=== PATIENT | male | born 1960 | race Caucasian/White ===

== ENCOUNTER 2017-03-16 20:32 | Emergency (ER) | payer MEDICAID ==
[2017-03-16] MEDS ORDERED: ACETAMINOPHEN 325 MG TAB PO ONE (21:21)
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
[2017-03-16 21:34] LABS: BASO % 0.3 % (0-6); EOS % 2.4 % (0-6); GRAN % 61.8 % (47-80); HEMATOCRIT 43.8 % (42.0-52.0); HEMOGLOBIN 15.3 gm/dl (14.0-18.0); MEAN CELL VOLUME 90.3 fl (81-97); MEAN CORPUSCULAR HEMOGLOBIN 31.5 pg (27-33); MEAN CORPUSCULAR HGB CONC 34.9 g/dl (32-36); MEAN PLATELET VOLUME 8.8 fl (7.4-10.4); MONO % 14.5 % (0-9); PLATELET COUNT 317 K/uL (130-400); RED BLOOD COUNT 4.85 M/uL (4.40-5.70); RED CELL DISTRIBUTION WIDTH 13.4 % (11.5-14.5); WHITE BLOOD COUNT W/O DIFF 12.5 K/uL (4.2-12.2)
[2017-03-16 21:55] LABS: ALB/GLOB RATIO 1.7 (1.1-1.8); ALBUMIN 4.7 g/dL (4.0-5.0); ALKALINE PHOSPHATASE 111 U/L (40-129); ALT/SGPT 18 U/L (<41); AST/SGOT 21 U/L (10.0-50.0); BLOOD UREA NITROGEN 20.7 mg/dL (12.6-42.6); CKMB 2.8 ng/mL (<6.73); CREATINE PHOSPHOKINASE 171 U/L (39-308); CREATININE 0.8 mg/dL (0.7-1.2); EST GLOMERULAR FILTRATION RATE > 60 mL/min; GLUCOSE,RANDOM 104 mg/dL (74-109); TOTAL PROTEIN 7.4 g/dL (6.6-8.7)
[2017-03-16 22:00] LABS: TROPONIN I < 0.30 ng/mL (0.00-0.300)
[2017-03-16 22:01] LABS: URINE APPEARANCE CLEAR; URINE BILIRUBIN NEGATIVE (NEGATIVE); URINE BLOOD MODERATE (NEGATIVE); URINE COLOR YELLOW; URINE GLUCOSE (UA) NEGATIVE (NEGATIVE); URINE KETONE NEGATIVE (NEGATIVE); URINE LEUKOCYTE ESTERASE NEGATIVE (NEGATIVE); URINE NITRITE NEGATIVE (NEGATIVE); URINE PROTEIN NEGATIVE (NEGATIVE); URINE UROBILINOGEN 0.2 E.U./dL (0.20 - 1.00)
[2017-03-16 22:05] LABS: URINE BACTERIA NONE SEEN; URINE EPITHELIAL CELLS 0 - 2 (FEW); URINE WBC 0 - 2 (0-2/hpf)
[2017-03-16] MEDS ORDERED: POTASSIUM CHLORIDE 20 MEQ TABLET PO ONE (22:07)
[2017-03-16] MEDS ORDERED: ERTAPENEM SODIUM 1 G in 0.9 % SODIUM CHLORIDE 100ML 100 ML IVPB ONE (22:31)
[2017-03-16] MEDS ORDERED: KETOROLAC 30 MG/ML VIAL IVP ONE (22:50)
--- NOTE | 2017-03-17 21:15 | RADIOLOGY REPORT ---
EXAM: CHEST 2 VIEWS HISTORY: COUGH. TECHNIQUE: Frontal and lateral views of the chest. COMPARISON: None. FINDINGS: The heart size is normal. The lungs are clear. There is no pneumothorax. IMPRESSION: NEGATIVE CHEST. JOB NUMBER: [id number] MTDD
--- NOTE | 2017-03-17 21:26 | CT SCAN REPORT ---
EXAM: CT SCAN ABDOMEN/PELVIS WO CONTRAST HISTORY: ABDOMINAL PAIN. TECHNIQUE: CT of the abdomen and pelvis was performed without oral or IV contrast. This limits evaluation of bowel and solid visceral organs. COMPARISON: Prior CT from 10/25/13. FINDINGS: Limited evaluation of the lung bases is unremarkable. Osseous structures are grossly intact. Limited evaluation of the liver, spleen, adrenal glands, pancreas, and kidneys is unremarkable. Mild atheromatous change. Wall thickening of the sigmoid colon with some adjacent inflammatory change. There are associated diverticula. Findings are consistent with acute diverticulitis. No abscess, free air, or free fluid. Normal appendix. IMPRESSION: ACUTE SIGMOID DIVERTICULITIS. JOB NUMBER: [id number] MTDD
== END 2017-03-16 23:31 | disposition home or self-care (01) ==
LOC: ER 20:32
DX: K57.32 Diverticulitis of large intestine without perforation or abscess without bleeding (principal); R07.89 Other chest pain; R51 Headache; R05 Cough; R50.81 Fever presenting with conditions classified elsewhere
CPT/HCPCS: 99284 ×2; 96374; 96375; 82550; 85025; 82553; 84484; 80053; 81001; 71020; 74176; 93005; 93010; J1335; J1885

== ENCOUNTER 2017-12-20 16:07 | Emergency (ER) | payer MEDICAID ==
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
[2017-12-20 17:18] LABS: BASO % 0.4 % (0-6); GRAN % 72.6 % (47-80); HEMATOCRIT 46.4 % (42.0-52.0); HEMOGLOBIN 16.1 gm/dl (14.0-18.0); LYMPH % 16.6 % (16-45); MEAN CELL VOLUME 97.5 fl (81-97); MEAN CORPUSCULAR HEMOGLOBIN 33.8 pg (27-33); MEAN CORPUSCULAR HGB CONC 34.7 g/dl (32-36); MEAN PLATELET VOLUME 9.2 fl (7.4-10.4); MONO % 8.4 % (0-9); PLATELET COUNT 265 K/uL (130-400); RED BLOOD COUNT 4.76 M/uL (4.40-5.70); RED CELL DISTRIBUTION WIDTH 15.1 % (11.5-14.5); WHITE BLOOD COUNT W/O DIFF 9.1 K/uL (4.2-12.2)
[2017-12-20 17:32] LABS: BLOOD UREA NITROGEN 9 mg/dL (6-20); CREATININE 0.8 mg/dL (0.7-1.2); EST GLOMERULAR FILTRATION RATE > 60 mL/min
[2017-12-20 17:33] LABS: TOTAL PROTEIN 5.6 g/dL (6.6-8.7)
[2017-12-20 17:35] LABS: GLUCOSE,RANDOM 100 mg/dL (74-109)
[2017-12-20 17:37] LABS: ALB/GLOB RATIO 1.9 (1.1-1.8); ALBUMIN 3.7 g/dL (4.0-5.0); ALT/SGPT 37 U/L (<41); AST/SGOT 29 U/L (10.0-50.0)
[2017-12-20 17:38] LABS: ALKALINE PHOSPHATASE 101 U/L (40-129)
[2017-12-20] MEDS: POTASSIUM CHLORIDE 20 MEQ TABLET PO ONE ×2 (17:48→18:53)
== END 2017-12-20 18:56 | disposition home or self-care (01) ==
LOC: ER 16:07
DX: K64.4 Residual hemorrhoidal skin tags (principal); R21 Rash and other nonspecific skin eruption; E87.6 Hypokalemia; R53.1 Weakness; F17.210 Nicotine dependence, cigarettes, uncomplicated
CPT/HCPCS: 80053; 84132; 85025; 93005; 93010; 99284

== ENCOUNTER 2017-12-22 13:37 | Emergency (ER) | payer MEDICAID ==
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
[2017-12-22 14:24] LABS: BLOOD UREA NITROGEN 8 mg/dL (6-20); CREATININE 0.6 mg/dL (0.7-1.2); EST GLOMERULAR FILTRATION RATE > 60 mL/min
[2017-12-22 14:27] LABS: GLUCOSE,RANDOM 77 mg/dL (74-109)
[2017-12-22] MEDS ORDERED: POTASSIUM CHLORIDE 20 MEQ TABLET PO ONE ×2 (14:34→15:07)
== END 2017-12-22 15:20 | disposition home or self-care (01) ==
LOC: ER 13:37
DX: E87.6 Hypokalemia (principal); F17.210 Nicotine dependence, cigarettes, uncomplicated
CPT/HCPCS: 80048; 99282

== ENCOUNTER 2019-04-06 09:59 | Day surgery (SDC) | payer MEDICAID ==
[2019-04-06] MEDS ORDERED: LIDOCAINE 2% MDV (20MG/ML) 20ML VIAL IV ONE (10:00)
[2019-04-06] MEDS ORDERED: PROPOFOL 10 MG/ML VIAL IV ONE (10:00)
--- NOTE | 2019-04-07 08:10 | Operative Note ---
OPERATION: COLONOSCOPY with cold snare polypectomy. PREOPERATIVE DIAGNOSIS: Colon cancer screen, initial exam. POSTOPERATIVE DIAGNOSES: 1. Mild sigmoid diverticulosis. 2. Sigmoid polyp. PREPARATION QUALITY: Excellent. ESTIMATED BLOOD LOSS: Minimum. SPECIMENS: Sigmoid colon polyp. COMPLICATIONS: None apparent. PROCEDURE: After informed consent was obtained from the patient, he was placed in the left lateral decubitus position in the endoscopy suite, sedated and monitored by the department of anesthesia. Digital rectal examination was unremarkable. A well-lubricated [id number] colonoscope was inserted into the rectum and advanced to the cecum. Preparation quality was good to excellent. The cecum, cecal bulb, ileocecal valve, appendiceal orifice, ascending colon, transverse colon, and descending colon were free of inflammatory changes, mass lesions, or polyps. There were a few scattered sigmoid diverticula. There was also noted to be a semi-pedunculated 5 mm polyp in the sigmoid colon which was removed with a cold snare with minimal bleeding noted. The rectum was unremarkable in forward and J-turn views. The endoscope was straightened, the rectal ampulla deflated, and the endoscope was removed. RECOMMENDATIONS: The patient should follow a high-fiber diet. I recommend a repeat exam in 3-5 years pending tissue histology. As always, thank you for allowing me to participate in the healthcare of your patients. WANDA
== END 2019-04-06 11:45 | disposition home or self-care (01) ==
LOC: HOP 09:59
PROVIDERS: ATTEND Internal Medicine Gastroenterology
DX: Z12.11 Encounter for screening for malignant neoplasm of colon (principal); D12.5 Benign neoplasm of sigmoid colon; K57.30 Diverticulosis of large intestine without perforation or abscess without bleeding

== ENCOUNTER 2019-05-14 14:11 | Inpatient (IN) | payer MEDICAID ==
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
[2019-05-14 15:28] LABS: ABSOLUTE NEUTROPHIL COUNT 7.74; BASO % 0.4 % (0-6); EOS % 1.8 % (0-6); GRAN % 69.4 % (47-80); HEMATOCRIT 44.6 % (42.0-52.0); HEMOGLOBIN 15.4 gm/dl (14.0-18.0); MEAN CELL VOLUME 92.7 fl (81-97); MEAN CORPUSCULAR HGB CONC 34.5 g/dl (32-36); MEAN PLATELET VOLUME 8.5 fl (7.4-10.4); MONO % 9.4 % (0-9); PLATELET COUNT 335 K/uL (130-400); RED BLOOD COUNT 4.81 M/uL (4.40-5.70); RED CELL DISTRIBUTION WIDTH 14.7 % (11.5-14.5); WHITE BLOOD COUNT W/O DIFF 11.2 K/uL (4.2-12.2)
[2019-05-14 15:37] LABS: BLOOD UREA NITROGEN 6 mg/dL (6-20); CREATININE 0.8 mg/dL (0.7-1.2); EST GLOMERULAR FILTRATION RATE > 60 mL/min
[2019-05-14 15:38] LABS: TOTAL PROTEIN 6.8 g/dL (6.6-8.7)
[2019-05-14 15:40] LABS: GLUCOSE,RANDOM 106 mg/dL (74-109)
[2019-05-14 15:43] LABS: ALBUMIN 4.5 g/dL (4.0-5.0); ALKALINE PHOSPHATASE 113 U/L (40-129); ALT/SGPT 11 U/L (<41); AST/SGOT 18 U/L (10.0-50.0)
[2019-05-14] MEDS ORDERED: SOD CHLOR 0.9% WITH KCL 40MEQ 40 MEQ/1,000 ML IV.SOLN IV ONE ×2 (15:51→22:04)
[2019-05-14] MEDS ORDERED: POTASSIUM CHLORIDE 20 MEQ TABLET PO ONE (15:51)
--- NOTE | 2019-05-14 15:52 | RADIOLOGY REPORT ---
EXAMINATION: Lumbar Spine Complete Views EXAM DATE: 05/14/2019 3:47 PM TECHNIQUE: AP, lateral, right and left oblique views INDICATION: chronic lumbar pain COMPARISON: None ENCOUNTER: Not applicable FINDINGS: On the AP view there is minimal dextroconvex curvature of the lumbar spine. Vertebral body height and alignment is maintained on the lateral view with no fracture identified. There is mild narrowing of the L5-S1 disc space. Mild spondylotic spurring is seen involving the lower lumbar spine. IMPRESSION: Mild degenerative changes of the lumbar spine. Dictated by: Leonard Higgins MD on 05/14/2019 3:49 PM. .
[2019-05-14] MEDS ORDERED: KETOROLAC 30 MG/ML VIAL IVP ONE (16:16)
[2019-05-14] MEDS ORDERED: LABETALOL HCL 5MG/ML, 20ML VIAL IV ONE (20:54)
[2019-05-14] MEDS ORDERED: SIMVASTATIN 20 MG TABLET PO SCH (22:00)
[2019-05-14] MEDS ORDERED: 0.9 % SODIUM CHLORIDE 1000ML 1,000 ML IV ONE (22:04)
[2019-05-14] MEDS: ACETAMINOPHEN 500 MG TABLET PO PRN (22:26)
[2019-05-14] MEDS: NICOTINE 21 MG/24 HOUR PATCH TD SCH (22:27)
[2019-05-15] MEDS: ACETAMINOPHEN 500 MG TABLET PO PRN ×2 (04:38→08:17)
[2019-05-15 06:39] LABS: ABSOLUTE NEUTROPHIL COUNT 4.19; BASO % 0.4 % (0-6); EOS % 2.9 % (0-6); GRAN % 56.9 % (47-80); HEMATOCRIT 39.3 % (42.0-52.0); HEMOGLOBIN 13.3 gm/dl (14.0-18.0); LYMPH % 29.7 % (16-45); MEAN CELL VOLUME 94.5 fl (81-97); MEAN CORPUSCULAR HGB CONC 33.8 g/dl (32-36); MEAN PLATELET VOLUME 9.1 fl (7.4-10.4); MONO % 10.1 % (0-9); PLATELET COUNT 293 K/uL (130-400); RED BLOOD COUNT 4.16 M/uL (4.40-5.70); RED CELL DISTRIBUTION WIDTH 14.6 % (11.5-14.5); WHITE BLOOD COUNT W/O DIFF 7.4 K/uL (4.2-12.2)
[2019-05-15 06:44] LABS: MEAN CORPUSCULAR HEMOGLOBIN 31.9 pg (27-33)
[2019-05-15 07:00] LABS: BLOOD UREA NITROGEN 8 mg/dL (6-20); CREATININE 0.7 mg/dL (0.7-1.2); EST GLOMERULAR FILTRATION RATE > 60 mL/min; GLUCOSE,RANDOM 110 mg/dL (74-109)
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
[2019-05-15] MEDS ORDERED: POTASSIUM CHLORIDE 20 MEQ TABLET PO ONE ×3 (08:11→15:00)
[2019-05-15] MEDS ORDERED: HYDROCODONE/APAP 5/325MG TABLET PO PRN (11:25)
[2019-05-15] MEDS ORDERED: 0.9 % SODIUM CHLORIDE 1000ML 1,000 ML IV PRN (11:40)
[2019-05-15] MEDS: HYDROCODONE/APAP 5/325MG TABLET PO PRN ×3 (11:43→21:43)
[2019-05-15] MEDS: ENOXAPARIN 40 MG/0.4 ML SYR SQ SCH (11:44)
[2019-05-15] MEDS: LISINOPRIL 10 MG TABLET PO SCH (11:44)
[2019-05-15] MEDS: ASPIRIN 81 MG TABEC PO SCH (11:44)
[2019-05-15] MEDS ORDERED: LOPERAMIDE 2 MG CAPSULE PO PRN (13:04)
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
--- NOTE | 2019-05-15 16:47 | RADIOLOGY REPORT ---
EXAMINATION: Abdomen Complete EXAM DATE: 05/15/2019 4:29 PM TECHNIQUE: Supine and upright views INDICATION: Comment on fecal load COMPARISON: AP CT 03/16/2017 ENCOUNTER: Not applicable FINDINGS: Free Intraperitoneal Air: None. Bowel: Nonobstructive bowel gas pattern. Air-filled small and large bowel loops may be related to ile us or gastroenteritis. No significant fecal load Abnormal Calcifications: None. Bones: Degenerative change LS-spine. Other Findings: None. IMPRESSION: Possible ileus or gastroenteritis. No obstruction Dictated by: Ameya Gorman MD on 05/15/2019 4:44 PM. .
[2019-05-15] MEDS: NICOTINE 21 MG/24 HOUR PATCH TD SCH ×2 (21:39→21:40)
[2019-05-15] MEDS: REMOVE NICOTINE TD SCH (21:40)
[2019-05-15] MEDS: ATORVASTATIN 20 MG TABLET PO SCH (21:42)
[2019-05-16 07:14] LABS: ALB/GLOB RATIO 1.9 (1.1-1.8); ALBUMIN 3.7 g/dL (4.0-5.0); ALKALINE PHOSPHATASE 94 U/L (40-129); ALT/SGPT 15 U/L (<41); AST/SGOT 15 U/L (10.0-50.0); BLOOD UREA NITROGEN 5 mg/dL (6-20); CREATININE 0.6 mg/dL (0.7-1.2); EST GLOMERULAR FILTRATION RATE > 60 mL/min; GLUCOSE,RANDOM 101 mg/dL (74-109); TOTAL PROTEIN 5.7 g/dL (6.6-8.7)
[2019-05-16] MEDS ORDERED: POTASSIUM CHLORIDE 20 MEQ TABLET PO SCH ×2 (07:45→10:00)
[2019-05-16] MEDS: HYDROCODONE/APAP 5/325MG TABLET PO PRN ×2 (08:56→14:31)
[2019-05-16] MEDS: LISINOPRIL 10 MG TABLET PO SCH (10:27)
[2019-05-16] MEDS: ASPIRIN 81 MG TABEC PO SCH (10:27)
[2019-05-16] MEDS: ENOXAPARIN 40 MG/0.4 ML SYR SQ SCH (10:27)
[2019-05-16] MEDS ORDERED: POTASSIUM CHLORIDE 20 MEQ TABLET PO ONE (17:13)
[2019-05-16] MEDS: ATORVASTATIN 20 MG TABLET PO SCH (21:38)
[2019-05-16] MEDS: POTASSIUM CHLORIDE 20 MEQ TABLET PO SCH (21:40)
[2019-05-16] MEDS: REMOVE NICOTINE TD SCH (21:41)
[2019-05-16] MEDS: NICOTINE 21 MG/24 HOUR PATCH TD SCH (21:41)
[2019-05-17 07:23] LABS: BLOOD UREA NITROGEN 8 mg/dL (6-20); CREATININE 0.7 mg/dL (0.7-1.2); EST GLOMERULAR FILTRATION RATE > 60 mL/min; GLUCOSE,RANDOM 100 mg/dL (74-109)
[2019-05-17] MEDS: HYDROCODONE/APAP 5/325MG TABLET PO PRN (08:31)
--- NOTE | 2019-05-17 09:11 | Discharge Note ---
VTE H&P Assessment - Risk for VTE Risk for VTE: Yes Risk Level: Moderate Risk Assessment Date: 05/15/19 Risk Assessment Time: 08:20 VTE Orders Placed or Will Be Placed: Yes Discharge Medications - Discharge Medications Home Medications: Ambulatory Orders Acetaminophen [Tylenol 500Mg Tab] 1,000 mg PO Q6H PRN tablet 05/17/19 [Last Taken Unknown] Aspirin Enteric-Coated [Ecotrin (EC)] 81 mg PO DAILY tabec 05/17/19 [Last Taken Unknown] Nicotine [Nicotine 21Mg] 1 patch TD Q24H patch 05/17/19 [Last Taken Unknown] Discharge Note - Date Date of Discharge Note: 05/17/19 Condition: (3) Guarded Instructions: Hypokalemia (ED), Lumbar Radiculopathy (ED) Additional Instructions: MRI scheduled at [facility] this Wednesday, May 20 at 3:15pm. Please bring completed history form with you. Check in at the main registration. Call with any questions related to the MRI. Review this ER visit and the tests performed with your family doctor Return to the ER for a recheck if worse, any new concerns or questions Take the prescriptions provided as directed Call to have your Potassium rechecked in 2 days with your doctor follow up with [facility] as scheduled tylenol for pain 625 mg every 6 hours and not to exceed 4 gms in 24 hours stop meloxicam Referrals: Chivo Fernández N.P. [Primary Care Provider] - Forms: Patient Portal Access Activity at Discharge: Increase Activity as Tolerated Diet at Discharge: Regular Diet
[2019-05-17] MEDS: POTASSIUM CHLORIDE 20 MEQ TABLET PO SCH (09:24)
[2019-05-17] MEDS: ASPIRIN 81 MG TABEC PO SCH (09:25)
[2019-05-17] MEDS: LISINOPRIL 10 MG TABLET PO SCH (09:25)
[2019-05-17] MEDS: ENOXAPARIN 40 MG/0.4 ML SYR SQ SCH (09:28)
--- NOTE | 2019-05-17 10:10 | Medical Records Consult ---
DATE OF CONSULTATION: 05/15/2019 REASON FOR CONSULTATION: Episodic diarrhea. HISTORY OF PRESENT ILLNESS: The patient is a very pleasant 58-year-old gentleman seen in consultation at the request of Dr. Roman for evaluation of intermittent diarrhea. The patient presented to the hospital complaining of a 3- month history of numbness and tingling in his lower extremities with associated back pain and some weakness. When he came to the hospital, he had laboratory drawn demonstrating hypokalemia with a potassium of 2.3. He has been receiving some potassium supplementation and his symptoms are somewhat improved although still persist. He also had accelerated hypertension at the time of admission, and this likewise has been treated medically. From a GI standpoint, he complains of very episodic diarrhea. He just completed a colonoscopy on 04/06/[address] Barros for screening purposes. At that time, he had a small tubular adenoma removed and a few diverticula but no evidence of colitis. The indication for the procedure was screening. There was no mention or report of any history of diarrhea. Upon questioning, the patient relates that he might have extreme urgency with "squirts of loose stool" but at other times is unable to pass any stool. In fact, he might pass a day between having stools. At most, he might have bowel movements 4 times a day, each is very small volume he claims, approximating 1/3 of a cup or so at most. He denies nocturnal stooling. He states that he has been having more of a problem stooling over the past year. His hypokalemia has been noted for the past 3 years and for this reason, he has been receiving potassium supplements. PAST MEDICAL HISTORY: Otherwise fairly unremarkable. He continues to smoke cigarettes on a day basis. MEDICATIONS: His only home medication he reported was potassium supplement 10 mg daily. He suffers with arthritis and myalgias, particularly of the lower extremity as mentioned above. He also suffers with hypertension. REVIEW OF SYSTEMS: Noted on the medical record was reviewed. Medical record from 05/14/2019 was reviewed. Other than the myalgia and arthralgia back pain, I agree with the review of systems documented. Also, reportedly, there was no diarrhea, nausea, or vomiting. I agree there is no nausea or vomiting but he does have episodic small-volume loose stools. As mentioned above, at other times, he might not pass stool at all for 24 hours. FAMILY HISTORY: Significant for diabetes and heart disease in his father. LABORATORY DATA: White blood cell count 11.2, hemoglobin 15.4, hematocrit 44.6, platelet count 335,000. Sodium 142, potassium 2.3, chloride 96, CO2 32, BUN 6, creatinine 0.8, glucose 106. Metabolic panel was unremarkable other than the low potassium of 2.3. Aminotransferase levels and bilirubin are normal. Total albumin is 4.5. Total protein 6.8. PHYSICAL EXAMINATION: GENERAL: The patient is alert and oriented. NECK: Supple. HEART: Regular. LUNGS: Clear. ABDOMEN: Soft. There is no rebound, rigidity, or guarding. EXTREMITIES: Free from edema. NEUROMUSCULAR: Examination grossly seems to be unremarkable. IMPRESSION: 1. The patient reports episodes of small-volume loose stools but some days may not pass stools at all. He denies any nocturnal stooling. He does experience urgency but at times unable to defecate and at other times he loses control of his stools. This symptom complex seems compatible with possible overflow diarrhea with "squirts" of loose stool, sometimes he will say with mucus in his stools. Again, at other time he might pass at least 24 hours without a stool. For further evaluation of this, I would like to check flat plate of the abdomen to see if there is increased fecal load. If so, he might benefit from some fiber supplementation. I would be leery of using laxatives due to his hypokalemia. 2. Hypokalemia. Cause unclear. He states that this has been going on for the past 3 years but his diarrhea has only been somewhat of a problem in the last 1 year. Again, it is not clear that he is having enough volume of loose stool to precipitate the hypokalemia although this again is not clear. There may be a metabolic issue as well. He denies the use of laxatives or diuretics. RECOMMENDATIONS: For further evaluation, I would like to check a flat plate to evaluate for the fecal load. He might benefit from Internal Medicine having some endocrinology or nephrology standpoint to again assess his hypokalemia if cause is not definitively determined. As mentioned above, the patient did have colonoscopy completed 1 month ago at which time one tubular adenoma was removed and mild diverticulosis was noted. There was no evidence of colitis nor was there initial complaint of diarrhea on the indication for the examination. Thank you for allowing me to participate in his care. Should you have questions in reference to this consultation, please do not hesitate to contact me. WANDA
--- NOTE | 2019-05-18 14:50 | Discharge Summary ---
DISCHARGE DIAGNOSES: 1. Hypokalemia, resolved. 2. Weakness, resolved. 3. Diarrhea, resolved. 4. Chronic low back pain, going for an MRI on Wednesday, followed by the PCP. 5. Marijuana use, occasional. ATTENDING PHYSICIAN: Lucas Merritt DO REASON FOR HOSPITALIZATION: This 58-year-old male presented with 3 months of numbness and tingling of his toes and feet. He has associated chronic low back pain. Over the last week he had tingling in his left hand as well. No weakness, no neck pain, no new trauma. He was seen by his PCP for this and they have discussed MRI but it has not been completed yet. No change in bowel or bladder. No fever, no incontinence. Chivo Fernández NP, is his PCP. He reports similar symptoms in the past with low potassium. He is on potassium supplementation. In the emergency department he was seen by Dr. Castillo. His potassium was 2.3. He has also had an elevated BP in the ER at 170/120. He states no history of hypertension. He was admitted by Dr. Burton to Dr. Roman's service and Jacinto was the admitting person who saw the patient. On my hospital week, the patient still had a low potassium of 2.8. Increased his oral potassium dosage. He was eating appropriately. He was moving around the room appropriately but he did complain about chronic back pain but objectively I could not see it when he moved around. He also complained of numbness in his lower legs, which is a chronic problem. SIGNIFICANT FINDINGS: On discharge, his potassium is 3.5 and magnesium 2.0, sodium 142, chloride 103, BUN 8, creatinine 0.7. THERAPY PROVIDED: IV fluids, oral potassium, pain medication for his chronic back pain. HOSPITAL COURSE: His potassium normalized. He is eating appropriately, moving around appropriately. I do not feel comfortable with prescribing opiates for him with my objective physical exam and recommend he use Tylenol for pain and follow up with his primary care physician if he needs narcotics. CONDITION ON DISCHARGE: Stable and improved. DISCHARGE INSTRUCTIONS: Tylenol 625 mg q.6 h. p.r.n., not to exceed 4 g per 24 hours. Stop the meloxicam because this could be causing problems with his diarrhea. Follow up with Chivo as scheduled. He needs to be rechecked on his potassium. He is to use the potassium prescription that was given to him by I believe the emergency department and it was already filled, 1 potassium pill a day. Have the potassium rechecked in 2-7 days. Return to the emergency department if worse. Follow through with the MRI of the back on 05/20/2019 at 3:15 p.m. WANDA
== END 2019-05-17 10:26 | disposition home or self-care (01) | DRG 641 ==
LOC: ER 14:11 → UNDOADMOB 21:41 → MEDSURG 21:41 → OBSVTOIN 22:43 → MEDSURG 05-16 09:06
PROVIDERS: ADMIT Internal Medicine; ATTEND Internal Medicine
DX: E87.6 Hypokalemia (principal); I10 Essential (primary) hypertension; R19.7 Diarrhea, unspecified; M54.5 Low back pain; R20.0 Anesthesia of skin; F17.210 Nicotine dependence, cigarettes, uncomplicated; R76.11 Nonspecific reaction to tuberculin skin test without active tuberculosis
CPT/HCPCS: 72110; 74019; 80048; 80053; 83735; 85025; 93005; 93010; 96365; 96366; 96375; 99223; 99232; 99239; 99285; J1650; J1885

== ENCOUNTER 2019-05-22 17:14 | Emergency (ER) | payer MEDICAID ==
[2019-05-22] MEDS ORDERED: POTASSIUM CHLORIDE 20 MEQ TABLET PO ONE (17:30)
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
[2019-05-22 17:50] LABS: ABSOLUTE NEUTROPHIL COUNT 7.69; BASO % 0.5 % (0-6); EOS % 2.3 % (0-6); GRAN % 70.2 % (47-80); HEMATOCRIT 43.6 % (42.0-52.0); HEMOGLOBIN 14.9 gm/dl (14.0-18.0); LYMPH % 20.1 % (16-45); MEAN CELL VOLUME 94.8 fl (81-97); MEAN CORPUSCULAR HEMOGLOBIN 32.4 pg (27-33); MEAN CORPUSCULAR HGB CONC 34.2 g/dl (32-36); MEAN PLATELET VOLUME 8.8 fl (7.4-10.4); MONO % 6.9 % (0-9); PLATELET COUNT 310 K/uL (130-400)
[2019-05-22 18:03] LABS: BLOOD UREA NITROGEN 10 mg/dL (6-20); CREATININE 0.7 mg/dL (0.7-1.2); EST GLOMERULAR FILTRATION RATE > 60 mL/min
[2019-05-22 18:06] LABS: GLUCOSE,RANDOM 93 mg/dL (74-109)
== END 2019-05-22 18:45 | disposition home or self-care (01) ==
LOC: ER 17:14
DX: E87.6 Hypokalemia (principal); R53.83 Other fatigue; I10 Essential (primary) hypertension; F17.210 Nicotine dependence, cigarettes, uncomplicated
CPT/HCPCS: 80048; 85025; 93005; 93010; 99284